=== PATIENT | female | born 1950 | race Caucasian/White ===

== ENCOUNTER 2018-03-12 09:39 | Emergency (ER) | payer MEDICARE, MEDICAID ==
--- NOTE | 2018-03-12 09:52 | Emergency Department Record ---
History of Present Illness - General Chief Complaint: Abdominal Pain Stated Complaint: ABDOMINAL PAIN/VOMITING Time Seen by Provider: 03/12/18 09:51 Source: Patient, RN notes reviewed Mode of Arrival: Ambulatory - History of Present Illness Initial Comments: patient has right upper quad pain with history of pancreatitis and she has a cough. H appendectomy, She has guarding in the right upper quad and lives at [facility]) in [place] and she has schizophrenic disorder and dementia and GERd and history of kidney stone. Caregiver liliane. Today vomiting times one. Meds zyprexa 10mg at night, - Related Data Home Medications Medication Instructions Recorded Confirmed Last Taken Cholecalciferol (Vitamin D3) 2,000 unit PO DAILY 03/12/18 03/12/18 03/12/18 [Vitamin D3] Lipase/Protease/Amylase [Creon Dr 2 tab PO TID 03/12/18 03/12/18 03/12/18 36,000 Units Capsule] Metoclopramide HCl [Reglan] 10 mg PO BID 03/12/18 03/12/18 03/12/18 Olanzapine 10 mg PO QHS 03/12/18 03/12/18 03/11/18 Omeprazole [Prilosec] 20 mg PO DAILY 03/12/18 03/12/18 03/12/18 Pravastatin Sodium [Pravachol] 20 mg PO QHS 03/12/18 03/12/18 03/11/18 Allergies Allergy/AdvReac Type Severity Reaction Status Date / Time No Known Drug Allergies Allergy Verified 03/12/18 10:50 Review of Systems Reviewed: No additional complaints except as noted below Constitutional: Reports: As per HPI. Denies: Chills, Fever, Malaise, Night sweats, Weakness, Weight change Eyes: Reports: As per HPI. Denies: Eye discharge, Eye pain, Photophobia, Vision change ENT: Reports: As per HPI. Denies: Congestion, Dental pain, Ear pain, Epistaxis , Hearing loss, Throat pain Respiratory: Reports: As per HPI. Denies: Cough, Dyspnea, Hemoptysis, Stridor, Wheezes Cardiovascular: Reports: As per HPI. Denies: Arrhythmia, Chest pain, Dyspnea on exertion, Edema, Murmurs, Orthopnea, Palpitations, Paroxysmal nocturnal dyspnea, Rheumatic Fever, Syncope Endocrine: Reports: As per HPI. Denies: Fatigue, Heat or cold intolerance, Polydipsia, Polyuria Gastrointestinal: Reports: As per HPI, Abdominal pain (right upper quad), Nausea , Vomiting. Denies: Constipation, Diarrhea, Hematemesis, Hematochezia, Melena Genitourinary: Reports: As per HPI. Denies: Abnormal menses, Discharge, Dyspareunia, Dysuria, Frequency, Hematuria, Incontinence, Retention, Urgency Musculoskeletal: Reports: As per HPI. Denies: Arthralgia, Back pain, Gout, Joint swelling, Myalgia, Neck pain Skin: Reports: As per HPI. Denies: Bruising, Change in color, Change in hair/ nails, Lesions, Pruritus, Rash Neurological: Reports: As per HPI. Denies: Abnormal gait, Confusion, Headache, Numbness, Paresthesias, Seizure, Tingling, Tremors, Vertigo, Weakness Psychiatric: Reports: As per HPI. Denies: Anxiety, Auditory hallucinations, Depression, Homicidal thoughts, Suicidal thoughts, Visual hallucinations Hematological/Lymphatic: Reports: As per HPI. Denies: Anemia, Blood Clots, Easy bleeding, Easy bruising, Swollen glands Physical Exam - General General Appearance: Alert, Oriented x3, Cooperative, No acute distress - Head Head exam: Normal inspection - Eye Eye exam: Normal appearance, PERRL Pupils: Normal accommodation - ENT ENT exam: Normal exam, Mucous membranes moist, Normal external ear exam, Normal orophraynx, TM's normal bilaterally Ear exam: Normal external inspection. negative: External canal tenderness Nasal Exam: Normal inspection. negative: Discharge, Sinus tenderness Mouth exam: Normal external inspection, Tongue normal Teeth exam: Normal inspection. negative: Dental caries Throat exam: Normal inspection. negative: Tonsillar erythema, Tonsillar exudate - Neck Neck exam: Normal inspection, Full ROM. negative: Tenderness - Respiratory Respiratory exam: Normal lung sounds bilaterally. negative: Respiratory distress - Cardiovascular Cardiovascular Exam: Regular rate, Normal rhythm, Normal heart sounds - GI/Abdominal GI/Abdominal exam: Soft, Normal bowel sounds. negative: Tenderness - Rectal Rectal exam: Deferred - exam: Deferred - Extremities Extremities exam: Normal inspection, Full ROM, Normal capillary refill. negative: Tenderness - Back Back exam: Reports: Normal inspection, Full ROM. Denies: Muscle spasm, Rash noted, Tenderness - Neurological Neurological exam: Alert, Normal gait, Oriented X3, Reflexes normal - Psychiatric Psychiatric exam: Normal affect, Normal mood - Skin Skin exam: Dry, Intact, Normal color, Warm Course - Reevaluation(s) Reevaluation #1: discussed case with Dr Delaney and will transfer to [facility] 03/12/18 12:06 Medical Decision Making - Data Complexity MDM Data: Labs Ordered and/or Reviewed (WBC 13,500 ,total bilirubin 2.1), X-Ray Ordered and/or Reviewed (Large gall stone and pericolic fluid, cyst of mass on pancreas possible pseudocyst, non obstructing kidney stones) - Lab Data Result diagrams: 03/12/18 10:00 03/12/18 10:00 Disposition Clinical Impression: Cholecystitis Gall stone Qualifiers: Cholecystitis presence: with cholecystitis Cholecystitis acuity: acute Biliary obstruction: without biliary obstruction Qualified Code(s): K80.00 - Calculus of gallbladder with acute cholecystitis without obstruction Disposition: Acute Care Hospital Transfer Condition: (1) Good Instructions: Cholecystitis (ED) Forms: Patient Portal Access Time of Disposition: 11:56 Quality - Quality Measures Quality Measures: N/A - Blood Pressure Screening Does Patient Have Any of the Following: No Blood Pressure Classification: Pre-Hypertensive BP Reading Systolic Measurement: 115 Diastolic Measurement: 89 Screening for High Blood Pressure: < Pre-Hypertensive BP, F/U Documented > [ G8950] Pre-Hypertensive Follow-up Interventions: Referral to alternative/primary care provider.
[2018-03-12] MEDS ORDERED: 0.9 % SODIUM CHLORIDE 1000ML 1,000 ML IV PRN (10:34)
[2018-03-12 10:45] LABS: HEMATOCRIT 38.1 % (35.0-47.0); HEMOGLOBIN 12.2 gm/dl (11.6-16.0); MEAN CELL VOLUME 89.4 fl (81-97); MEAN CORPUSCULAR HEMOGLOBIN 28.6 pg (27-33); MEAN PLATELET VOLUME 11.5 fl (7.4-10.4); PLATELET COUNT 163 K/uL (130-400); RED BLOOD COUNT 4.26 M/uL (3.80-5.40); RED CELL DISTRIBUTION WIDTH 13.5 % (11.5-14.5); WHITE BLOOD COUNT W/O DIFF 13.5 K/uL (4.2-12.2)
[2018-03-12 11:00] LABS: BLOOD UREA NITROGEN 10 mg/dL (8-23); PLATELET ESTIMATE NORMAL (NORMAL)
[2018-03-12 11:01] LABS: CREATININE 0.6 mg/dL (0.5-0.9); EST GLOMERULAR FILTRATION RATE > 60 mL/min; TOTAL PROTEIN 7.3 g/dL (6.6-8.7)
[2018-03-12 11:03] LABS: GLUCOSE,RANDOM 139 mg/dL (74-109)
[2018-03-12 11:06] LABS: ALBUMIN 3.9 g/dL (4.0-5.0); ALKALINE PHOSPHATASE 160 U/L (35-104); ALT/SGPT 23 U/L (<33); AST/SGOT 19 U/L (10.0-35.0); BILIRUBIN,DIRECT 0.5 mg/dL (0-0.3); LIPASE 14 U/L (13-60)
[2018-03-12 11:44] LABS: URINE APPEARANCE CLEAR; URINE BILIRUBIN SMALL (NEGATIVE); URINE BLOOD MODERATE (NEGATIVE); URINE GLUCOSE (UA) NEGATIVE (NEGATIVE); URINE KETONE NEGATIVE (NEGATIVE); URINE LEUKOCYTE ESTERASE NEGATIVE (NEGATIVE)
[2018-03-12] MEDS ORDERED: ERTAPENEM SODIUM 1 G in 0.9 % SODIUM CHLORIDE 100ML 100 ML IVPB ONE (11:56)
[2018-03-12 11:58] LABS: URINE COLOR DARK YELLOW
[2018-03-12] MEDS ORDERED: 0.9 % SODIUM CHLORIDE 1000ML 1,000 ML IV ONE (11:59)
[2018-03-12 12:01] LABS: URINE RBC 0 - 2 (NONE SEEN)
[2018-03-12 12:02] LABS: URINE AMORPHOUS SEDIMENT 2+; URINE BACTERIA FEW; URINE WBC 0 - 2 (0-2/hpf)
--- NOTE | 2018-03-13 08:49 | CT SCAN REPORT ---
EXAM: CT OF THE ABDOMEN AND PELVIS WITHOUT CONTRAST HISTORY: ABDOMINAL PAIN. TECHNIQUE: Sequential axial images were obtained from the diaphragms through the ischiorectal fossa without intravenous or oral contrast administration. FINDINGS: The visualized lung oseguera are normal. There is cardiomegaly without pericardial effusion. The liver appears homogeneous. There is marked gallbladder distention with gallbladder wall thickening and gallstones present. There is likely a gallstone present within the gallbladder neck. There is a large cystic lesion in the pancreatic body region. This measures approximately 5.7 x 4.7 cm. There is calcification present as well. The spleen appears normal. The adrenal glands appear normal. There is a nonobstructing calculi in the left kidney. There is reactive inflammatory change of the hepatic flexure. No evidence for obstruction. The small bowel appears normal. The colon appears normal. The urinary bladder appears normal. The osseous structures appear grossly unremarkable. IMPRESSION: 1. CHOLELITHIASIS. THERE IS LIKELY A GALLSTONE PRESENT WITHIN THE GALLBLADDER NECK. THERE IS GALLBLADDER WALL THICKENING AND PERICHOLECYSTIC FLUID. THERE IS A REACTIVE INFLAMMATORY CHANGE AT THE HEPATIC FLEXURE. 2. 5.7 X 4.7 CM CYSTIC LESION IN THE PANCREATIC BODY REGION. THIS SHOULD BE FURTHER EVALUATED. NONOBSTRUCTING CALCULUS LEFT KIDNEY. JOB NUMBER: [id number] [facility]
== END 2018-03-12 13:23 | disposition short-term general hospital (02) ==
LOC: ER 09:39
DX: K80.00 Calculus of gallbladder with acute cholecystitis without obstruction (principal); R30.0 Dysuria; R05 Cough; I10 Essential (primary) hypertension; Z87.891 Personal history of nicotine dependence
CPT/HCPCS: 74176; 80048; 80076; 81001; 83690; 85027; 96361; 96365; 99285

== ENCOUNTER 2018-03-22 17:51 | Emergency (ER) | payer MEDICARE, MEDICAID ==
--- NOTE | 2018-03-22 18:16 | Emergency Department Record ---
History of Present Illness - General Chief complaint: Female Urogenital Problem Stated complaint: UTI Time Seen by Provider: 03/22/18 18:04 Source: Patient, [place] Mode of Arrival: Ambulatory Limitations: No limitations - History of Present Illness Initial comments: The patient is here due to a 3 days hx of dysuria intermittently and a one day hx of RUQ AP. She recently had her gallbladder removed at [facility] approx. 9 days ago and was admitted to the hospital until 6 days ago. She was discharged on an oral Abx but the caregiver does not know the name. The patient has dementia and Schizophrenia and the hx is obtained from the longterm caregiver. The caregiver denies any nausea, vomiting, diarrhea or fever and had been eating and defecating well. The patient also has had her appendix removed. The caregiver does not know the date of her F/U appointment. Complaint: Dysuria Onset/Timin -: Days(s) Radiation: RLQ Quality: Aching, Burning Consistency: Constant Improves with: None Worsens with: Urination Patient : No Associated Symptoms: Denies other symptoms - Related Data Sexually active: No Home Medications Medication Instructions Recorded Confirmed Last Taken Hydrocodone/Acetaminophen [[place] 1 each PO Q6H 03/22/18 03/22/18 Unknown 5-325 Tablet] Allergies Allergy/AdvReac Type Severity Reaction Status Date / Time No Known Drug Allergies Allergy Verified 03/12/18 10:50 Travel Screening - Travel/Exposure Within Last 30 Days Have you traveled within the last 30 days?: No Review of Systems Constitutional: Denies: Chills, Fever Eyes: Denies: Eye discharge ENT: Denies: Congestion Respiratory: Denies: Cough, Dyspnea Cardiovascular: Denies: Arrhythmia, Chest pain Endocrine: Denies: Fatigue, Heat or cold intolerance Gastrointestinal: Reports: Abdominal pain. Denies: Diarrhea, Nausea Genitourinary: Reports: Dysuria Musculoskeletal: Denies: Back pain Skin: Denies: Bruising Past Medical History - SOCIAL HISTORY Smoking Status: Former smoker - RESPIRATORY Hx Respiratory Disorders: No - CARDIOVASCULAR Hx Cardio Disorders: Yes Hx Hypertension: Yes Comment:: cholesterol - NEURO Hx Neuro Disorders: Yes Hx Seizures: Yes - GI Hx GI Disorders: Yes Hx Hepatitis/Jaundice: Yes Hx Irritable Bowel: Yes Comment:: necrotizing pancreatitis - Hx Genitourinary Disorders: Yes Hx Bladder Problem: Yes - ENDOCRINE Hx Endocrine Disorders: No - MUSCULOSKELETAL Hx Musculoskeletal Disorders: No - PSYCH Hx Psych Problems: No - HEMATOLOGY/ONCOLOGY Hx Hematology/Oncology Disorders: Yes Hx Anemia: Yes Family Medical History Any Significant Family History?: No Physical Exam - General General Appearance: Alert, Cooperative, No acute distress - Head Head exam: Atraumatic - Eye Eye exam: Normal appearance - ENT Throat exam: Normal inspection. negative: Tonsillar erythema, Tonsillar exudate - Neck Neck exam: Normal inspection, Full ROM. negative: Tenderness - Respiratory Respiratory exam: Normal lung sounds bilaterally. negative: Respiratory distress - Cardiovascular Cardiovascular Exam: Regular rate, Normal rhythm, Normal heart sounds - GI/Abdominal GI/Abdominal exam: Soft, Tenderness (mild RUQ tenderness.). negative: Guarding , Rebound, Rigid - Extremities Extremities exam: Normal inspection, Full ROM, Normal capillary refill. negative: Tenderness - Back Back exam: Reports: Normal inspection - Neurological Neurological exam: Alert. negative: Motor sensory deficit Course Vital Signs 03/22/18 18:00 Temperature 98.9 F Pulse Rate [ 90 Pulse Ox Probe] Respiratory 16 Rate Blood Pressure 130/73 [Left Arm] Pulse Ox 98 - Reevaluation(s) Reevaluation #1: The patient is doing very well at this time and states the pain is improved with the oral pain med. I did discuss the lab and CT results with the patient and caregiver and also the fact that I did consult with the gen surgeon information technology assistant Dr. Roberts. He feels the CT results do demonstrate the normal healing process and since the patient has had no fever, vomiting, or WBC elevation it is very unlikely she has a developing infection. Dr. Roberts would like the patient to F/U in the office this week as previously planned. 03/22/18 19:21 Reevaluation #2: I also did discuss the lab results with the patient and cargiver and the fact that her HGB is slightly improved from hospital discharge. 03/22/18 19:27 Medical Decision Making - Data Complexity MDM Data: Labs Ordered and/or Reviewed, X-Ray Ordered and/or Reviewed - Lab Data Result diagrams: 03/22/18 18:15 03/22/18 18:15 - Radiology Data Radiology results: Report reviewed (CT: ill defined process in GB fossa with trace air. Most likely post op changes vs developing infection.) Disposition Disposition: Discharge Clinical Impression: Post-op pain Disposition: Home, Self-Care Condition: (2) Stable Instructions: Abdominal Pain (ED) Additional Instructions: Please continue the home pain medicines and finish your antibiotics. Please see the surgeon this week as planned. Return to the ER for any worsening pain, or any fever or vomiting. Forms: Patient Portal Access Time of Disposition: 19:24 Quality - Quality Measures Quality Measures: N/A - Blood Pressure Screening View Details: Yes Does Patient Have Any of the Following: No Blood Pressure Classification: Normal BP Reading Systolic Measurement: 117 Diastolic Measurement: 59 Screening for High Blood Pressure: < Normal BP, F/U Not Required > [G8783]
[2018-03-22 18:22] LABS: HEMATOCRIT 31.6 % (35.0-47.0); HEMOGLOBIN 9.6 gm/dl (11.6-16.0); MEAN CELL VOLUME 93.2 fl (81-97); MEAN CORPUSCULAR HEMOGLOBIN 28.3 pg (27-33); MEAN CORPUSCULAR HGB CONC 30.4 g/dl (32-36); MEAN PLATELET VOLUME 9.1 fl (7.4-10.4); PLATELET COUNT 518 K/uL (130-400); RED BLOOD COUNT 3.39 M/uL (3.80-5.40); RED CELL DISTRIBUTION WIDTH 14.9 % (11.5-14.5); WHITE BLOOD COUNT W/O DIFF 6.1 K/uL (4.2-12.2)
[2018-03-22 18:30] LABS: URINE APPEARANCE CLEAR; URINE BILIRUBIN NEGATIVE (NEGATIVE); URINE BLOOD NEGATIVE (NEGATIVE); URINE COLOR YELLOW; URINE GLUCOSE (UA) NEGATIVE (NEGATIVE); URINE KETONE NEGATIVE (NEGATIVE); URINE LEUKOCYTE ESTERASE NEGATIVE (NEGATIVE); URINE NITRITE NEGATIVE (NEGATIVE); URINE PROTEIN NEGATIVE (NEGATIVE); URINE UROBILINOGEN 0.2 E.U./dL (0.20 - 1.00)
[2018-03-22 18:38] LABS: BLOOD UREA NITROGEN 11 mg/dL (8-23); CREATININE 0.7 mg/dL (0.5-0.9); EST GLOMERULAR FILTRATION RATE > 60 mL/min
[2018-03-22 18:39] LABS: TOTAL PROTEIN 6.8 g/dL (6.6-8.7)
[2018-03-22 18:41] LABS: GLUCOSE,RANDOM 137 mg/dL (74-109)
[2018-03-22 18:42] LABS: HYPOCHROMIA 1+
[2018-03-22 18:43] LABS: ALBUMIN 3.5 g/dL (4.0-5.0); ALT/SGPT 13 U/L (<33); AST/SGOT 12 U/L (10.0-35.0)
[2018-03-22 18:44] LABS: ALKALINE PHOSPHATASE 110 U/L (35-104); BILIRUBIN,DIRECT < 0.2 mg/dL (0-0.3); LIPASE 24 U/L (13-60)
[2018-03-22] MEDS ORDERED: HYDROCODONE/APAP 5/325MG TABLET PO ONE (19:02)
--- NOTE | 2018-03-22 20:35 | CT SCAN REPORT ---
EXAM: CT SCAN ABDOMEN/PELVIS WO CONTRAST HISTORY: RIGHT UPPER QUADRANT PAIN. CHOLECYSTECTOMY ONE WEEK AGO. TECHNIQUE: CT of the abdomen and pelvis is performed without intravenous or oral contrast. COMPARISON: 03/12/2018. FINDINGS: There is a small right pleural effusion. Mild atelectatic change at the lung bases. There is a moderate hiatal hernia. In the gallbladder fossa, there is somewhat ill-defined low density. This area is poorly marginated measuring about 4.5 x 3.3 cm. Within this, there is a small collection of air/gas. This may just represent postsurgical change. Developing abscess would be difficult to exclude. Clinical correlation and follow-up are suggested. Contrast-enhanced study may be of benefit for further assessment. There is a 5.7 x 4.4 cm low-density lesion identified in the pancreatic body, unchanged from the prior study. Pancreas otherwise unremarkable. Spleen unremarkable. No hepatic mass visualized. There is a nonobstructing left renal calculus measuring approximately 4 mm in size, unchanged. There are likely parapelvic renal cysts on the left. There is no hydronephrosis. No ureteral calculus. There are atherosclerotic changes in the abdominal aorta. There is no aneurysm. No periaortic mass or adenopathy. There are no dilated bowel loops. There is no pelvic mass or adenopathy. IMPRESSION: 1. ILL-DEFINED HYPODENSITY WITH CENTRAL AIR COLLECTION IN THE GALLBLADDER FOSSA. SOME GAS IS ALSO SEEN EXTENDING INTO THE FISSURE. THIS MAY JUST REPRESENT RESIDUAL POSTOPERATIVE PHLEGMON. A DEVELOPING ABSCESS, HOWEVER, CAN'T BE EXCLUDED. THIS IS NOT OPTIMALLY ASSESSED WITHOUT CONTRAST. CLINICAL CORRELATION AND FOLLOW-UP RECOMMENDED. 2. A 5.7 X 4.4 CM CYSTIC LESION IN THE PANCREATIC BODY, UNCHANGED. 3. NONOBSTRUCTING LEFT RENAL CALCULUS, UNCHANGED. 4. NEW SMALL RIGHT PLEURAL EFFUSION. 5. MODERATE HIATAL HERNIA. [facility]: [id number] [facility]
== END 2018-03-22 19:33 | disposition home or self-care (01) ==
LOC: ER 17:51
DX: G89.18 Other acute postprocedural pain (principal); R10.11 Right upper quadrant pain; R30.0 Dysuria; I10 Essential (primary) hypertension; Z87.891 Personal history of nicotine dependence; Z90.49 Acquired absence of other specified parts of digestive tract
CPT/HCPCS: 74176; 80048; 80076; 81003; 83690; 85027; 99283; 99284